=== PATIENT | male | born 1955 | race Two or more races ===

== ENCOUNTER 2017-12-13 13:19 | Emergency (ER) | payer OTHER, SELFPAY ==
[2017-12-13 13:20] VITALS: BP 115/78; PULSE 63; RESP 16; TEMP 36.5; O2SAT 99; BMI 36.2
[2017-12-13 13:23] VITALS: BP 115/78; PULSE 61; RESP 16; TEMP 36.5; O2SAT 99; BMI 35.2
[2017-12-13] MEDS: Rabies Vaccine,Human Diploid 2.5 UNITS Vial IM (13:53)
== END 2017-12-13 15:27 | disposition home or self-care (01) ==
PROVIDERS: Emergency Provider Emergency Medicine
DX: Z23 Encounter for immunization (principal)
CPT/HCPCS: 90675; 96372

== ENCOUNTER → 2017-12-16 13:56 | Outpatient (CLI) | payer OTHER, SELFPAY ==
[2017-12-16] MEDS: Rabies Vaccine,Human Diploid 2.5 UNITS Vial IM (13:48)
== END ==
PROVIDERS: Visit Provider Emergency Medicine
DX: Z23 Encounter for immunization (principal)
CPT/HCPCS: 90675; 96372